=== PATIENT | male | born 1955 | race Caucasian/White ===

== ENCOUNTER 2020-09-09 18:56 | Inpatient (IN) | payer MEDICARE, OTHER ==
[~2020-09-09] VITALS: Ht 182.9 cm; Wt 86.2 kg
[2020-09-09] MEDS ORDERED: HYZAAR 100-12.1 EACH PO (21:35)
[2020-09-09] MEDS ORDERED: PAXIL 20 MG TAB20 MG PO (21:35)
[2020-09-09] MEDS ORDERED: WIXELA 250-501 EACH INH (21:38)
[2020-09-09] MEDS ORDERED: AMLODIPINE BESYL5 MG PO (21:39)
[2020-09-09] MEDS ORDERED: BUPROPION HCL150 M1 PO (21:40)
[2020-09-09] MEDS ORDERED: LEVOFLOXACIN500 MG PO (21:47)
[2020-09-09] MEDS ORDERED: PREDNISONE20 MG PO (21:48)
[2020-09-10 03:17] LABS: HEMOGLOBIN 12.8 gm/dl (14.0-17.5); RED BLOOD COUNT 4.37 M/UL (4.20-5.50); WHITE BLOOD COUNT 4.4 K/UL (4.5-11.0)
[2020-09-10 04:01] LABS: BUN/CREATININE RATIO 17 (0-10)
[2020-09-11 02:10] LABS: HEMOGLOBIN 13.1 gm/dl (14.0-17.5); RED BLOOD COUNT 4.46 M/UL (4.20-5.50)
[2020-09-11 02:11] LABS: WHITE BLOOD COUNT 13.3 K/UL (4.5-11.0)
[2020-09-12 02:42] LABS: HEMOGLOBIN 13.5 gm/dl (14.0-17.5); RED BLOOD COUNT 4.55 M/UL (4.20-5.50); WHITE BLOOD COUNT 15.1 K/UL (4.5-11.0)
[2020-09-12 03:10] LABS: BUN/CREATININE RATIO 24 (0-10)
[2020-09-13 03:09] LABS: HEMOGLOBIN 11.3 gm/dl (14.0-17.5); RED BLOOD COUNT 3.89 M/UL (4.20-5.50); WHITE BLOOD COUNT 7.8 K/UL (4.5-11.0)
[2020-09-13 03:39] LABS: BUN/CREATININE RATIO 20 (0-10)
--- NOTE | 2020-09-13 18:43 | NUR ---
BEDSIDE REPORT DONE AT THIS TIME. PATIENT SITTING ON BEDSIDE STABLE. WCTM.
[2020-09-14 02:29] LABS: HEMOGLOBIN 11.8 gm/dl (14.0-17.5); RED BLOOD COUNT 4.04 M/UL (4.20-5.50); WHITE BLOOD COUNT 8.4 K/UL (4.5-11.0)
[2020-09-14 02:50] LABS: BUN/CREATININE RATIO 19 (0-10)
[2020-09-14 13:26] LABS: BUN/CREATININE RATIO 20 (0-10)
[2020-09-14 17:24] LABS: BUN/CREATININE RATIO 17 (0-10)
[2020-09-14 20:23] LABS: BUN/CREATININE RATIO 17 (0-10)
[2020-09-14 22:33] LABS: BUN/CREATININE RATIO 17 (0-10)
[2020-09-15 03:04] LABS: HEMOGLOBIN 11.2 gm/dl (14.0-17.5); RED BLOOD COUNT 3.82 M/UL (4.20-5.50); WHITE BLOOD COUNT 8.1 K/UL (4.5-11.0)
[2020-09-15 03:25] LABS: BUN/CREATININE RATIO 17 (0-10)
[2020-09-16 10:53] LABS: HEMOGLOBIN 13.3 gm/dl (14.0-17.5); RED BLOOD COUNT 4.47 M/UL (4.20-5.50); WHITE BLOOD COUNT 11.2 K/UL (4.5-11.0)
[2020-09-16 10:56] LABS: BUN/CREATININE RATIO 18 (0-10)
[2020-09-17 02:09] LABS: HEMOGLOBIN 11.7 gm/dl (14.0-17.5); RED BLOOD COUNT 4.04 M/UL (4.20-5.50)
[2020-09-17 02:39] LABS: BUN/CREATININE RATIO 27 (0-10)
[2020-09-18 02:52] LABS: HEMOGLOBIN 11.1 gm/dl (14.0-17.5); RED BLOOD COUNT 3.83 M/UL (4.20-5.50); WHITE BLOOD COUNT 9.3 K/UL (4.5-11.0)
[2020-09-18 03:15] LABS: BUN/CREATININE RATIO 25 (0-10)
[2020-09-19 02:50] LABS: HEMOGLOBIN 13.2 gm/dl (14.0-17.5); RED BLOOD COUNT 4.51 M/UL (4.20-5.50); WHITE BLOOD COUNT 17.1 K/UL (4.5-11.0)
[2020-09-19 03:25] LABS: BUN/CREATININE RATIO 26 (0-10)
[2020-09-20 03:37] LABS: HEMOGLOBIN 12.4 gm/dl (14.0-17.5); RED BLOOD COUNT 4.26 M/UL (4.20-5.50)
[2020-09-20 03:45] LABS: WHITE BLOOD COUNT 11.4 K/UL (4.5-11.0)
[2020-09-20 04:29] LABS: BUN/CREATININE RATIO 24 (0-10)
[2020-09-21 03:19] LABS: HEMOGLOBIN 11.9 gm/dl (14.0-17.5); RED BLOOD COUNT 4.11 M/UL (4.20-5.50); WHITE BLOOD COUNT 11.6 K/UL (4.5-11.0)
[2020-09-21 03:38] LABS: BUN/CREATININE RATIO 29 (0-10)
[2020-09-22 02:53] LABS: HEMOGLOBIN 10.7 gm/dl (14.0-17.5); WHITE BLOOD COUNT 9.9 K/UL (4.5-11.0)
[2020-09-22 02:57] LABS: RED BLOOD COUNT 3.66 M/UL (4.20-5.50)
[2020-09-22 03:35] LABS: BUN/CREATININE RATIO 29 (0-10)
[2020-09-23 02:45] LABS: HEMOGLOBIN 10.7 gm/dl (14.0-17.5); RED BLOOD COUNT 3.64 M/UL (4.20-5.50); WHITE BLOOD COUNT 9.6 K/UL (4.5-11.0)
[2020-09-23 03:11] LABS: BUN/CREATININE RATIO 30 (0-10)
[2020-09-24 04:34] LABS: RED BLOOD COUNT 3.76 M/UL (4.20-5.50); WHITE BLOOD COUNT 11.9 K/UL (4.5-11.0)
[2020-09-24 04:51] LABS: BUN/CREATININE RATIO 26 (0-10)
[2020-09-25 02:10] LABS: HEMOGLOBIN 10.8 gm/dl (14.0-17.5); RED BLOOD COUNT 3.73 M/UL (4.20-5.50); WHITE BLOOD COUNT 9.8 K/UL (4.5-11.0)
[2020-09-25 03:05] LABS: BUN/CREATININE RATIO 23 (0-10)
--- NOTE | 2020-09-25 12:30 | NUR ---
CALLED DR. SUÁREZ AND TOLD HIM THAT THE PATIENT WAS NOW ON A BIPAP AND HE WAS UNRESPONSIVE TO VERBAL COMMANDS. I DID NOT FEEL HE WAS ABLE TO SIGN CONSENT FORMS FOR [employer]ICD PLACEMENT. THE PATIENT HAD NO RESPONSE WHEN I TRIED TO TALK TO HIM. DR. SUÁREZ CHANGED HIS PROCEDURE TO 09/26/2020. PT AND FAMILY THOUGHT THIS WAS THE BEST OPTION BECAUSE THE SISTER DID NOT WANT TO SIGN THE CONCENTS FOR HIM.
[2020-09-25 19:47] LABS: HEMOGLOBIN 11.7 gm/dl (14.0-17.5); RED BLOOD COUNT 4.01 M/UL (4.20-5.50)
[2020-09-25 20:02] LABS: WHITE BLOOD COUNT 12.8 K/UL (4.5-11.0)
[2020-09-26 05:00] LABS: HEMOGLOBIN 10.6 gm/dl (14.0-17.5); RED BLOOD COUNT 3.67 M/UL (4.20-5.50); WHITE BLOOD COUNT 11.3 K/UL (4.5-11.0)
[2020-09-26 05:20] LABS: BUN/CREATININE RATIO 29 (0-10)
[2020-09-27 05:25] LABS: HEMOGLOBIN 9.9 gm/dl (14.0-17.5); RED BLOOD COUNT 3.42 M/UL (4.20-5.50)
[2020-09-27 05:45] LABS: BUN/CREATININE RATIO 31 (0-10)
[2020-09-28 05:15] LABS: HEMOGLOBIN 9.2 gm/dl (14.0-17.5); RED BLOOD COUNT 3.15 M/UL (4.20-5.50); WHITE BLOOD COUNT 6.9 K/UL (4.5-11.0)
[2020-09-28 05:45] LABS: BUN/CREATININE RATIO 37 (0-10)
[2020-09-29 04:27] LABS: HEMOGLOBIN 10.1 gm/dl (14.0-17.5)
[2020-09-29 04:37] LABS: RED BLOOD COUNT 3.49 M/UL (4.20-5.50); WHITE BLOOD COUNT 9.9 K/UL (4.5-11.0)
[2020-09-29 04:51] LABS: BUN/CREATININE RATIO 30 (0-10)
[2020-09-30 04:20] LABS: HEMOGLOBIN 10.2 gm/dl (14.0-17.5); RED BLOOD COUNT 3.51 M/UL (4.20-5.50); WHITE BLOOD COUNT 11.2 K/UL (4.5-11.0)
[2020-09-30 04:46] LABS: BUN/CREATININE RATIO 40 (0-10)
[2020-10-01 05:25] LABS: RED BLOOD COUNT 3.47 M/UL (4.20-5.50); WHITE BLOOD COUNT 13.9 K/UL (4.5-11.0)
[2020-10-01 05:48] LABS: BUN/CREATININE RATIO 43 (0-10)
[2020-10-02 05:32] LABS: HEMOGLOBIN 8.9 gm/dl (14.0-17.5); WHITE BLOOD COUNT 11.2 K/UL (4.5-11.0)
[2020-10-02 05:50] LABS: RED BLOOD COUNT 3.1 M/UL (4.20-5.50)
[2020-10-02 05:55] LABS: BUN/CREATININE RATIO 44 (0-10)
== END 2020-10-02 18:06 | disposition expired | DRG 207 ==
LOC: CCU 20:36 → PROG CARE 20:36 → CCU 09-25 20:02
PROVIDERS: Internal Medicine; Internal Medicine Cardiovascular Disease; Internal Medicine Nephrology; Internal Medicine Pulmonary Disease; ADMIT Family Medicine
PROC: B24BZZZ Ultrasonography of Heart with Aorta (ICD-10-PCS; 2020-09-10)
PROC: 4A023N7 Measurement of Cardiac Sampling and Pressure, Left Heart, Percutaneous Approach (ICD-10-PCS; 2020-09-20)
PROC: B2111ZZ Fluoroscopy of Multiple Coronary Arteries using Low Osmolar Contrast (ICD-10-PCS; 2020-09-20)
PROC: 4A033BC Measurement of Arterial Pressure, Coronary, Percutaneous Approach (ICD-10-PCS; 2020-09-20)
PROC: 5A1955Z Respiratory Ventilation, Greater than 96 Consecutive Hours (ICD-10-PCS; principal; 2020-09-25)
PROC: 0BH17EZ Insertion of Endotracheal Airway into Trachea, Via Natural or Artificial Opening (ICD-10-PCS; 2020-09-25)
PROC: 0B9J8ZX Drainage of Left Lower Lung Lobe, Via Natural or Artificial Opening Endoscopic, Diagnostic (ICD-10-PCS; 2020-09-27)
PROC: 0B968ZZ Drainage of Right Lower Lobe Bronchus, Via Natural or Artificial Opening Endoscopic (ICD-10-PCS; 2020-09-27)
PROC: 0B9D8ZZ Drainage of Right Middle Lung Lobe, Via Natural or Artificial Opening Endoscopic (ICD-10-PCS; 2020-09-27)
DX: J96.21 Acute and chronic respiratory failure with hypoxia (principal); J18.9 Pneumonia, unspecified organism; G93.41 Metabolic encephalopathy; I50.23 Acute on chronic systolic (congestive) heart failure; R57.0 Cardiogenic shock; I47.2 Ventricular tachycardia; J44.0 Chronic obstructive pulmonary disease with (acute) lower respiratory infection; N17.9 Acute kidney failure, unspecified; E87.1 Hypo-osmolality and hyponatremia; I42.8 Other cardiomyopathies; J44.1 Chronic obstructive pulmonary disease with (acute) exacerbation; J96.22 Acute and chronic respiratory failure with hypercapnia; Z20.822 Contact with and (suspected) exposure to COVID-19; Z51.5 Encounter for palliative care; Z66 Do not resuscitate; I48.0 Paroxysmal atrial fibrillation; I25.10 Atherosclerotic heart disease of native coronary artery without angina pectoris; I71.4 Abdominal aortic aneurysm, without rupture; R33.9 Retention of urine, unspecified; I27.20 Pulmonary hypertension, unspecified; D72.828 Other elevated white blood cell count; T38.0X5A Adverse effect of glucocorticoids and synthetic analogues, initial encounter; D64.9 Anemia, unspecified; F41.0 Panic disorder [episodic paroxysmal anxiety]; R74.01 Elevation of levels of liver transaminase levels; I11.0 Hypertensive heart disease with heart failure; I44.7 Left bundle-branch block, unspecified; F41.9 Anxiety disorder, unspecified; Z88.0 Allergy status to penicillin; Z82.49 Family history of ischemic heart disease and other diseases of the circulatory system; Z87.891 Personal history of nicotine dependence; Z90.49 Acquired absence of other specified parts of digestive tract; Z79.899 Other long term (current) drug therapy
CPT/HCPCS: ECHO; 31500; 36415; 36600; 71045; 71046; 74018; 80048; 80053; 80076; 80202; 82140; 82533; 82550; 82553; 82803; 83605; 83615; 83735; 83880; 83930; 83935; 84100; 84295; 84300; 84439; 84443; 84484; 85025; 85027; 85379; 86140; 87015; 87040; 87070; 87081; 87086; 87116; 87205; 87206; 92610; 93005; 93306; 94003; 94640; 94660; 94664; 94760; 97161; 99152; 99153; C1769; C1894; J0456; J0692; J0696; J1120; J1205; J1250; J1644; J1650; J1940; J2001; J2060; J2185; J2248; J2250; J2270; J2704; J2920; J3010; J3370; J3475; J7030; J7040; J7070; Q9965; Q9967